=== PATIENT | female | born 1970 | race Caucasian/White ===

== ENCOUNTER 2024-07-14 04:45 | Emergency (ER) | payer BC, SELFPAY ==
[2024-07-14 04:50] VITALS: BP 158/92
--- NOTE | 2024-07-14 05:29 | ED.GENMED ---
History of Present Illness
General
Chief Complaint: Abdominal Pain
Source: patient
Exam Limitations: none
Time Seen by Provider: 07/14/24 05:01
Nursing documentation reviewed up to this point in time: agreed with
History of Present Illness
History of Present Illness:
Patient presents to ED secondary to abdominal cramping sensation. Patient states that 2 days ago, she woke up with nausea sensation, followed by number of nonbloody diarrhea episodes. Since then, diarrhea has subsided, but patient has had
decreased appetite with nausea sensation. Denies recent travel. Denies sick contact. Denies dizziness. Denies shortness of breath. Denies coughing. Denies recent change in medications or diet.
Past History
Past History
ED Past Medical History: GERD, HTN and Hypercholesterolemia
ED Past Surgical History: and Tonsilectomy
Social History
Tobacco: Smoker
Alcohol: None
Personal: Single
Living: with family (Son)
Review of Systems
Review of Systems
Allergies reviewed?: Yes
All Other Systems: ROS reviewed and negative except as documented in HPI and ROS
Constitutional: Reports no symptoms
Respiratory: Reports no symptoms
Cardiac: Reports no symptoms
ABD/GI: Reports abdominal pain, nausea and diarrhea; Denies vomiting
: Reports no symptoms
Musculoskeletal: Reports no symptoms
Skin: Reports no symptoms
Neurological: Reports no symptoms
Phy Exam
Physical Exam
Physical Exam:
Physical Exam
General: no apparent distress, not acutely ill. afebrile
Head: nc/at. eomi
Neck: supple. no meningeal signs.
Heart: s1/s2 regular rate and rhythm, no murmur. equal radial pulses.
Lungs: no acute respiratory distress. clear bilaterally
Abdomen: normal bowel sounds. not tender. no distention
Neuro: alert and oriented. no focal neurological deficits
Skin: no rash
Psychiatric: well kept. interactive and cooperative
Extremities: no edema. no calf tenderness.
Course
Orders/Labs/Results
Orders:
Orders
07/14/24 05:20
Ketorolac [Toradol] 15 mg IV NOW STA
07/14/24 05:21
0.9% Sodium Chloride 1000 ml [Nss] 1,000 ml IV BOLUS
Pantoprazole [Protonix IV] 40 mg IV NOW STA
07/14/24 05:34
Complete Blood Count/With Diff Urgent
Comprehensive Metabolic Panel Urgent
Magnesium Urgent
Abnormal Lab Results
07/14/24
05:34
WBC 15.0 H 10^3/uL
(4.8-10.8)
RBC 5.43 H 10^6/uL
(4.20-5.40)
MCV 79.9 L fL
(81.0-99.0)
MCH 26.2 L pg
(27.0-31.0)
MCHC 32.7 L g/dL
(33.0-37.0)
RDW 15.1 H %
(11.5-14.5)
Absolute Neuts (auto) 11.8 H 10^3/uL
(1.4-6.5)
Absolute Monos (auto) 1.1 H 10^3/uL
(0.1-0.6)
Neutrophils % 79.1 H %
(42.2-75.2)
Lymphocytes % 12.2 L %
(20.5-51.1)
Carbon Dioxide 20 L mmol/L
(22-30)
Glucose 120 H mg/dl
(70-99)
07/14/24 05:34
07/14/24 05:34
Vital Signs
Initial and Last Documented VS:
Initial Vital Signs
Temp Pulse Resp BP Pulse Ox
100.2 F 112 22 158/92 94
07/14/24 04:50 07/14/24 04:50 07/14/24 04:50 07/14/24 04:50 07/14/24 04:50
Last Documented Vital Signs
Temp Pulse Resp BP Pulse Ox
100.2 F 86 22 131/65 96
07/14/24 04:50 07/14/24 06:52 07/14/24 04:50 07/14/24 06:52 07/14/24 06:52
MDM/Problems Addressed
MDM/Problems Addressed:
History and exam consistent with likely viral illness versus food reaction. Otherwise, patient is afebrile, hemodynamically stable, and nontoxic-appearing at time of discharge. Repeat abdominal exam: Soft and nontender. Will advise bland diet,
continual hydration, along with PCP follow-up as an outpatient.
*Critical Care Note
Total Time (30-74mins, 75-104mins- exclusive of procedures): Not Applicable
ED Attending Note
-
Portions of this chart may have been created with voice recognition software.� Occasional wrong word or��sound alike� substitutions may have occurred due to the inherent limitations of voice recognition software.
Discharge Plan
Departure
Patient Disposition: Home (Routine Discharge)
Date of Disposition: 07/14/24
Time of Disposition: 06:29
Patient with high blood pressure during this ER visit?: Yes
Discharge Problem:
Abdominal pain, Diarrhea
Instructions: Diarrhea in teens and adults, Abdominal Pain
Prescriptions:
New
ondansetron 4 mg Tablet,Disintegrating
4 mg PO TIDPRN PRN (Reason: nausea/vomiting) Qty: 12 0RF
Referrals:
Shazia Corona DO [Family Provider] -
Stand Alone Forms: Return to Work
Activity Restrictions/Additional Instructions:
As discussed, please follow-up with your primary care physician for for reevaluation. Your prescription has been sent electronically to [facility] pharmacy in [place].
Interventions
Interventions:
*Risk Screen - Suicide Last Done: 07/14/24 04:47
*General Assessment Last Done: 07/14/24 05:35
*Neglect/Abuse Screening Last Done: 07/14/24 04:47
ED- Fall Risk Assessment Last Done: 07/14/24 05:00
*ED COVID-19 Vaccine History Last Done: 07/14/24 05:35
*Nursing Disposition Last Done: 07/14/24 06:55
XO-Cfyftp-Rzuobmhpyz Assessment Last Done: 07/14/24 05:00
Discharge Date and Time
Discharge Date/Time: 07/14/24 06:56
Print Language: LAO
[2024-07-14 05:35] VITALS: BMI 37.1
[2024-07-14] MEDS: TORADOL 15 MG IV (05:36)
[2024-07-14] MEDS: PROTONIX IV 40 MG IV (05:36)
[2024-07-14] MEDS: NSS 1000 IV (05:37)
[2024-07-14 05:51] LABS: % Basophils 0.3 % (0-2); % Eosinophils 0.7 % (0-6); % Immature Granulocytes 0.3 % (0-0.5); % Lymphocytes 12.2 % (20.5-51.1); % Monocytes 7.4 % (1.7-9.3); % Neutrophils 79.1 % (42.2-75.2); Absolute Basophils 0.1 10^3/uL (0-0.2); Absolute Eosinophils 0.1 10^3/uL (0-0.7); Absolute Lymphocytes 1.8 10^3/uL (1.2-3.4); Absolute Monocytes 1.1 10^3/uL (0.1-0.6); Absolute Neutrophils 11.8 10^3/uL (1.4-6.5); Hematocrit 43.4 % (37.0-47.0); Hemoglobin 14.2 g/dL (12.0-16.0); Mean Corp Hgb Conc. 32.7 g/dL (33.0-37.0); Mean Corpuscular Hgb 26.2 pg (27.0-31.0); Mean Corpuscular Volume 79.9 fL (81.0-99.0); Mean Platelet Volume 8.4 fL (7.4-10.4); Nucleated Red Blood Cells % 0 %; Platelet Count 329 10^3/uL (130-400); Red Blood Cell Count 5.43 10^6/uL (4.20-5.40); Red Cell Dist. Width 15.1 % (11.5-14.5)
[2024-07-14 06:03] LABS: ALT (SGPT) 23 U/L (0-35); AST (SGOT) 29 U/L (14-36); Albumin 4.3 g/dl (3.5-5.0); Alkaline Phosphatase 86 U/L (38-126); Blood Urea Nitrogen 9 mg/dl (7-17); Calcium 9.1 mg/dl (8.4-10.2); Carbon Dioxide 20 mmol/L (22-30); Chloride 105 mmol/L (98-107); Estimated Creatinine Clearance > 125 ml/min; Glucose 120 mg/dl (70-99); Magnesium 1.7 mg/dl (1.6-2.3); Sodium 141 mmol/L (135-145); Total Bilirubin 0.3 mg/dl (0.2-1.3); Total Protein 7.1 g/dl (6.3-8.2); eGFR > 60.00
[2024-07-14 06:52] VITALS: BP 131/65
== END 2024-07-14 06:56 | disposition home or self-care (01) ==
LOC: EMR 04:45
PROVIDERS: EMERGENCY PHYSICIAN Emergency Medicine; FAMILY PHYSICIAN Family Medicine
DX: R10.9 Unspecified abdominal pain (principal); R19.7 Diarrhea, unspecified; K21.9 Gastro-esophageal reflux disease without esophagitis; I10 Essential (primary) hypertension; E78.00 Pure hypercholesterolemia, unspecified; F17.200 Nicotine dependence, unspecified, uncomplicated
CPT/HCPCS: 99283; 96374; 96375; 96361; 80053; 83735; 85025